=== PATIENT | female | born 1965 | race Caucasian/White ===

== ENCOUNTER → 2017-02-14 | Outpatient (CLI) | payer OTHER ==
[~2017-02-14] MED LIST: CREON DR 24,001 EACH PO; EFFEXOR XR150 MG PO; HYDROCHLOROTH12.5 MG PO; METFORMIN HCL500 M1 PO; PROTONIX PO; TOUJEO SOL300 UNIT/1 SUBQ; ZESTRIL10 M1 PO; ZOCOR PO
--- NOTE | ~2017-02-14 | XA77 ---
[facility] A Service of [facility] RADIOLOGY TEXT RESULTS PATIENT: TREMAINE HUBER [facility] 61 UN[facility] #: [id number] AGE: [address]: Jade Limon MD SEX: F ORDER DR: [id number] [facility] [address] [place], [place] [address] [id number] O MR#: [id number] Acc #: [id number] NAME: RTEMAINE HUBER : 1965 SEX: F STUDY DATE/TIME: 02/14/2017 12:28 UNIT: [facility] ROOM: STUDY DESCRIPTION: XA CVC Port Devive Check Attending Physician: Jade Limon M.D. Referring Physician: Jade Limon M.D. Ordering Physician: Grady Lagunas M.D. Primary Care Physician: Jade Limon M.D. MEDICAL IMAGING REPORT This report is preliminary unless electronic signature is present EXAM Right IJ Cujzyu-C-Zmlt study. DATE 02/14/2017 CLINICAL HISTORY Long-term indwelling right IJ Qduaqv-B-Bjxw, no blood return. PROCEDURE Informed consent was obtained. The Wzscfy-E-Hyxq was accessed via standard Seldinger technique. During fluoroscopic monitoring, contrast was injected. While no blood return was elicited, there was clearly a small fibrin sheath about the distal 5-10 mm of the catheter. There is no evidence of fracture or other defect in the catheter. IMPRESSION 1. While there is good flow wave from the tip of the catheter, there is a small fibrin sheath about the distal 5-10 mm of the catheter. The device is otherwise intact. Consideration might be given to therapeutic tPA infusion. 2. Total fluoro time 0.8 minutes, 2 spot images and 1 angiographic series. Dictated by... Link Sánchez M.D. THIS IS AN ELECTRONICALLY VERIFIED REPORT Link Sánchez M.D. at 02/19/2017 10:37 AM TEV/cameron [facility] A Service of [facility] RADIOLOGY TEXT RESULTS PATIENT: TREMAINE HUBER LOCATION: [facility] : 61 UNIT #: [id number] AGE: [address]: Jade Limon MD SEX: F ORDER DR: TD: 02/15/2017 09:20 JOB #: [id number] MEDICAL IMAGING REPORT Page 1 of 1 COPY
--- NOTE | ~2017-02-14 | CT55 ---
[facility] A Service of [facility] RADIOLOGY TEXT RESULTS PATIENT: TREMAINE HUBER LOCATION: [facility] : 61 UNIT #: [id number] AGE: [address]: Jade Limon MD SEX: F ORDER DR: [id number] [facility] [address] [place], [place] [address] [id number] O MR#: [id number] Acc #: [id number] NAME: TREMAINE HUBER : 1965 SEX: F STUDY DATE/TIME: 02/14/2017 12:39 UNIT: [facility] ROOM: STUDY DESCRIPTION: CT Chest W Con Attending Physician: Jade Limon M.D. Referring Physician: Jade Limon M.D. Ordering Physician: Jade Limon M.D. Primary Care Physician: Jade Limon M.D. MEDICAL IMAGING REPORT This report is preliminary unless electronic signature is present EXAM CT chest with contrast INDICATION Elevated liver enzyme levels. Restaging pancreatic cancer. Observation for metastatic disease. Patient reports right upper quadrant abdominal pain for the past 3 months. PROCEDURE Contrast-enhanced CT of the chest. 100 mL of Isovue-370. This CT exam was performed with one or more of the following radiation dose reduction techniques: automatic exposure control, adjustment of mA and/or kV according to patient size, and iterative reconstruction. COMPARISON Comparison with a CT of the abdomen from 07/02/2010. FINDINGS There are a few scattered subcentimeter nodules in the lung bases. These are unchanged from 2009. No definite new nodule is seen. There is no pleural fluid or pneumothorax. No adenopathy. Refer to the separately dictated abdomen CT for findings below the diaphragm. No aggressive-appearing bone lesion. IMPRESSION 1. No definitive evidence for metastatic disease to the chest. 2. Subcentimeter nodules in both lower lobes are unchanged since 2009. Refer to the separately dictated abdomen CT for findings below the diaphragm. Dictated by... Silvano Cervantes M.D. [facility] A Service of [facility] RADIOLOGY TEXT RESULTS PATIENT: TREMAINE HUBER [id number] 61 UNIT #: [id number] AGE: [address]: Jade Limon MD SEX: F ORDER DR: THIS IS AN ELECTRONICALLY VERIFIED REPORT Silvano Cervantes M.D. at 02/16/2017 7:06 AM Facundo TD: 02/15/2017 08:29 JOB #: [id number] MEDICAL IMAGING REPORT Page 1 of 1 COPY
--- NOTE | ~2017-02-14 | CT5 ---
[facility] A Service of [facility] RADIOLOGY TEXT RESULTS PATIENT: TREMAINE HUBER LOCATION: [facility] : 61 UNIT #: [id number] AGE: [address]: Jade Limon MD SEX: F ORDER DR: [id number] [facility] [address] [place], [place] [address] [id number] O MR#: [id number] Acc #: [id number] NAME: TREMAINE HUBER. : 1965 SEX: F STUDY DATE/TIME: 02/14/2017 10:02 UNIT: [facility] ROOM: STUDY DESCRIPTION: CT Abdomen W Cont Attending Physician: Jade Limon M.D. Referring Physician: Jade Limon M.D. Ordering Physician: Jade Limon M.D. Primary Care Physician: Jade Limon M.D. MEDICAL IMAGING REPORT This report is preliminary unless electronic signature is present EXAM CT abdomen with contrast INDICATION Elevated liver enzyme levels. Followup pancreatic cancer. Right upper quadrant abdominal pain for the past 3 months. Observation for disease progression, metastatic disease. PROCEDURE Contrast-enhanced CT of the abdomen. 100 mL of Isovue-370. COMPARISON 07/02/[address] exam was performed with one or more of the following radiation dose reduction techniques: automatic exposure control, adjustment of mA and/or kV according to patient size, and iterative reconstruction. FINDINGS Refer to separately dictated chest CT for thoracic findings. There are a few tiny cysts in the liver that are similar to the previous study. No worrisome liver lesion. Previous splenectomy. Kidneys, adrenal glands, gallbladder are unremarkable. 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 There is some postoperative tethering in the upper abdomen, but no definite abnormal tissue or adenopathy. There is moderate colonic stool. Bowel loops are nondilated. No aggressive appearing bone lesion. IMPRESSION 1. Patient is status post splenectomy and distal pancreatectomy with [facility] A Service of [facility] RADIOLOGY TEXT RESULTS PATIENT: TREMAINE HUBER LOCATION: [facility] : 61 UNIT #: [id number] AGE: [address]: Jade Limon MD SEX: F ORDER DR: only a small amount of pancreatic tissue remaining. No evidence for pancreatic mass or convincing evidence for abdominal metastatic disease. 2. Moderately large colonic stool burden. Dictated by... Silvano Cervantes M.D. THIS IS AN ELECTRONICALLY VERIFIED REPORT Silvano Cervantes M.D. at 02/15/2017 7:23 AM Juan TD: 02/14/2017 15:01 JOB #: [id number] MEDICAL IMAGING REPORT Page 1 of 1 COPY
[2017-02-14 12:56] LABS: POC - CREATININE 1.07 mg/dL (0.44-1.03)
== END | disposition home or self-care (01) ==
LOC: CCAT 09:51
PROVIDERS: Family Medicine
DX: R74.8 Abnormal levels of other serum enzymes (principal); R91.8 Other nonspecific abnormal finding of lung field; Z85.07 Personal history of malignant neoplasm of pancreas; Z90.81 Acquired absence of spleen; Z90.410 Acquired total absence of pancreas
CPT/HCPCS: 71260; 74160; 82565; J1642; Q9967

== ENCOUNTER → 2017-03-02 | Outpatient (CLI) | payer OTHER ==
[2017-03-02 14:03] LABS: BASOPHIL# 0.1 X10e3 (0-0.3); EOSINOPHIL# 0.4 X10e3 (0-0.7); EOSINOPHIL% 3.9 % (0.0-7.0); HEMATOCRIT 39.9 % (35.0-45.0); HEMOGLOBIN 13.4 gm/dL (12.0-16.0); LYMPHOCYTE# 5.1 X10e3 (1.0-3.5); LYMPHOCYTE% 47.4 % (17.0-45.0); MEAN CELL VOLUME 90.4 FL (83-96); MEAN CORPUSCULAR HEMOGLOBIN 30.4 PG (28-34); MEAN CORPUSCULAR HGB CONC 33.7 g/dL (30-36); MEAN PLATELET VOLUME 8.9 FL (6.5-11.5); MONOCYTE# 0.9 X10e3 (0-1.0); MONOCYTE% 7.9 % (3.0-12.0); NEUTROPHIL# 4.3 X10e3 (1.5-7.1); NEUTROPHIL% 39.8 % (40-75); PLATELET COUNT 335 X10e3 (140-420); RED BLOOD COUNT 4.41 X10e (3.90-5.30); RED CELL DISTRIBUTION WIDTH 13.5 % (11.0-15.5); WHITE BLOOD COUNT 10.8 X10e3 (4.0-10.5)
[2017-03-02 14:08] LABS: DIFF IND NO
[2017-03-02 14:09] LABS: URINE APPEARANCE CLEAR; URINE BILIRUBIN NEG (NEG); URINE BLOOD NEG (NEG); URINE COLOR YELLOW; URINE GLUCOSE 500 MG/DL (NEG); URINE KETONE NEG (NEG); URINE LEUKOCYTE ESTERASE NEG (NEG); URINE NITRATE NEG (NEG); URINE PROTEIN NEG (NEG); URINE SPECIFIC GRAVITY 1.014 (1.003-1.035); URINE UROBILINOGEN 0.2 MG/DL (NEG)
[2017-03-02 14:20] LABS: CREATININE,RANDOM URINE 51 mg/dL; TOTAL PROTEIN,RANDOM URINE <10 mg/dl (<10)
[2017-03-02 14:44] LABS: BILIRUBIN,TOTAL 0.9 mg/dL (0.2-2.0); BUN/CREATININE RATIO 24.61; CREATININE SERUM 1.3 mg/dL (0.6-1.4); GLOM FILT RATE Estimated 46.5 mL/min (>60); POTASSIUM 4.2 mmol/L (3.5-5.1); PROTEIN TOTAL SERUM 8.3 g/dL (6.0-8.3)
[2017-03-05 09:43] LABS: MICROALB UR (PNL) 0.9 mg/dL (***)
== END | disposition home or self-care (01) ==
LOC: CLAB 13:04
PROVIDERS: Internal Medicine Nephrology
DX: N18.3 Chronic kidney disease, stage 3 (moderate) (principal)
CPT/HCPCS: 36415; 80053; 81003; 82043; 82570; 84156; 85025